=== PATIENT | male | born 1975 | race Caucasian/White ===

== ENCOUNTER 2017-08-26 05:50 | Day surgery (SDC) | payer OTHER ==
[~2017-08-26] VITALS: Ht 175.3 cm; Wt 99.3 kg
--- NOTE | ~2017-08-26 | OP ---
PATIENT NAME: CHERRI HEDRICK MEDICAL RECORD: [id number] :79 LOCATION:D.OPS ADMISSION DATE: SURGEON: MELO CONTI MD DATE OF OPERATION: 08/26/2017 PREOPERATIVE DIAGNOSES: Disc herniation, osteophyte formation at C3-C4, left with left C4 radiculitis. PROCEDURE: Anterior cervical discectomy and fusion with removal of osteophytes at C3-C4, left; VIP anterior cervical plate and screws; colonial PEEK interbody spacer via cell bone stem cell bone allograft. DESCRIPTION OF TECHNIQUE: After induction of general endotracheal anesthesia, the patient was positioned supine on the operating table with interscapular roll longitudinally. After sterile prep and drape, a freer was used to localize the C3-C4 interspace on the lateral C-spine x-ray. Next, an infiltration of 1:100,000 epinephrine and 1% lidocaine was used to infiltrate the skin and a transverse skin incision was carried out from midline to the sternocleidomastoid muscle. The platysma was divided with Bovie cautery. Using blunt and sharp dissection with Metzenbaum scissors, I proceeded an avascular plane medial to the carotid sheath. The C3-C4 interspace was identified with fluoroscopic x-ray and a spinal needle. The longus colli muscles were elevated from bodies of C3 and C4 with Bovie cautery. A self-retaining retractor was placed deep to the longus colli muscles. [place] distracting pins were placed at the bodies of C3 and C4. The disk space was incised with #11 blade under distraction. Disc material was removed with pituitary rongeurs and curettes. Posteriorly, a Midas Eliud was used to drill away osteophytes on the left between C3 and C4. The posterior longitudinal ligament was removed with Cloward rongeurs. Following this, the dura was decompressed well. A foraminotomy was carried out on the left C3-C4 foramen and removing additional osteophytic material. Nerve root was decompressed well following this, the endplates were prepared with curettes. A 7 mm PEEK interbody spacer was placed in the disc space under distraction. Prior to this 1 cc of Biocel bone stem cells were used to fill the PEEK interbody cage, a 17 mm VIP anterior cervical plate was used to span C3-C4 interspace, 16 mm screws were placed through the holes of plate. The locking Cam was tightened down over the screw heads. Meticulous hemostasis was maintained throughout the wound. The wound was irrigated with copious amounts of Ancef irrigant solution. The platysma and subdermal layer were closed with interrupted 3-0 Vicryl suture. The skin was closed with subcuticular stitch 5-0. The skin edges were reapproximated with Steri-Strips and benzoin. A sterile dressing was applied to the wound. The patient was awakened in good condition and taken to recovery. All counts were reported as correct. Estimated blood loss was minimal. TRANSINT:[id number] Voice Confirmation ID: [id number] DOCUMENT ID: [id number] MELO CONTI MD CC: [id number] DICTATION DATE: 09/02/17 172 ASSISTANT PARALEGAL: 09/02/17 180 [facility] 08/27/17 [facility] [address] [place] [address]
[2017-08-26] MEDS ORDERED: DUEXIS 800-26.1 EACH PO (07:29)
[2017-08-26] MEDS ORDERED: ROBAXIN-750750 MG PO (07:29)
[2017-08-26] MEDS ORDERED: NEURONTIN 300300 MG PO (07:30)
[2017-08-26] MEDS ORDERED: BACLOFEN20 M1 PO (07:30)
[2017-08-26] MEDS ORDERED: AMITRIPTYLINE100 MG PO (07:31)
[2017-08-26] MEDS ORDERED: NORCO 7.5/325 T1 TA1 PO (07:31)
[2017-08-26 07:32] VITALS: BP 118/68; BMI 32.5
[2017-08-26 14:50] VITALS: BP 119/73; Ht 175.3 cm; Wt 99.3 kg
[2017-08-26 16:46] VITALS: BP 119/73
[2017-08-26 21:47] VITALS: BP 134/75
[2017-08-27 01:54] VITALS: BP 130/71
[2017-08-27 05:53] VITALS: BP 114/50
[2017-08-27 08:11] VITALS: BP 109/52
[2017-08-27 11:44] VITALS: BP 105/56
[2017-08-27] MEDS ORDERED: PERCOCET 10/3251 TA1 PO (12:42)
== END 2017-08-27 14:19 | disposition home or self-care (01) ==
LOC: D.OPS 05:50 → D.M2 05:50 → D.SDCHOLD 05:50 → EDSTATUS 09:15 → D.SDCHOLD 09:15 → D.M2 13:47 → D.SDCHOLD 13:47 → D.M2 08-27 14:19 → D.OPS 08-27 14:19
DX: M50.11 Cervical disc disorder with radiculopathy, high cervical region (principal); M48.02 Spinal stenosis, cervical region; Z01.812 Encounter for preprocedural laboratory examination

== ENCOUNTER 2017-09-01 18:37 | Emergency (ER) | payer OTHER ==
[2017-08-26 14:50] VITALS: BMI 31.8
[~2017-09-01 18:37] MED LIST: AMITRIPTYLINE100 MG PO; BACLOFEN20 M1 PO; DUEXIS 800-26.1 EACH PO; NEURONTIN 300300 MG PO; NORCO 7.5/325 T1 TA1 PO; PERCOCET 10/3251 TA1 PO; ROBAXIN-750750 MG PO
== END 2017-09-01 20:37 | disposition home or self-care (01) ==
LOC: D.ER 18:37
DX: K91.89 Other postprocedural complications and disorders of digestive system (principal); R60.0 Localized edema